=== PATIENT | female | born 1965 | race Hispanic/Latino ===

== ENCOUNTER 2023-01-31 22:20 | Emergency (ER) | payer BC ==
[~2023-01-31] VITALS: Ht 160 cm; Wt 56.2 kg
[2023-01-31 22:26] VITALS: BP 162/95
[2023-01-31 23:22] LABS: HEMATOCRIT 36.8 % (36-48); MEAN CORPUSCULAR HEMOGLOBIN 31.5 pg (27.0-33.0); MEAN CORPUSCULAR HGB CONC 35.1 g/dL (32.0-36.0); MEAN CORPUSCULAR VOLUME 89.8 fL (79-99); RED BLOOD CELL COUNT(AUTO) 4.1 MIL/uL (4.00-5.50); RED CELL DISTRIBUTION WIDTH 11.2 % (11.0-15.5); WHITE BLOOD COUNT (AUTO) 6.9 K/uL (4.8-10.8)
[2023-01-31] MEDS ORDERED: HYDROXYZINE 25 MG TABLET PO ONE (23:30)
[2023-01-31 23:35] LABS: CREATININE 0.7 mg/dL (0.5-1.5)
[2023-01-31 23:48] LABS: THYROID STIMULATING HORMONE 3.14 uIU/mL (0.36-3.74)
[2023-01-31] MEDS ORDERED: HYDR50CA50 PO (23:51)
== END 2023-01-31 23:55 | disposition home or self-care (01) ==
LOC: EDH 22:20
DX: F41.9 Anxiety disorder, unspecified (principal); I10 Essential (primary) hypertension; G43.909 Migraine, unspecified, not intractable, without status migrainosus; Z90.89 Acquired absence of other organs; Z90.49 Acquired absence of other specified parts of digestive tract
CPT/HCPCS: 36415; 80048; 83735; 84443; 85027